=== PATIENT | female | born 1930 | race Caucasian/White ===

== ENCOUNTER 2017-01-02 08:00 | Outpatient (CLI) | payer MEDICARE, OTHER | END 2017-01-02 23:59 | DX: E03.9 Hypothyroidism, unspecified (principal) ==

== ENCOUNTER 2017-05-08 15:28 | Outpatient (CLI) | payer MEDICARE, OTHER | END 2017-05-08 15:29 | disposition home or self-care (01) | LOC: LAB.R 15:28 | PROVIDERS: ATTEND Family Medicine | DX: E03.9 Hypothyroidism, unspecified (principal) | CPT/HCPCS: 84443 ==

== ENCOUNTER 2017-11-02 10:43 | Outpatient (CLI) | payer MEDICARE, OTHER ==
[2017-11-02 11:12] LABS: BASOPHILS # (AUTO) 0.1 10^3/uL (0.0-0.1); BASOPHILS % (AUTO) 1.1 %; EOSINOPHILS % (AUTO) 0.1 %; HGB - HEMOGLOBIN 14.7 g/dL (12.0-16.0); LYMPHOCYTES # (AUTO) 2.1 10^3/uL (1.5-3.5); LYMPHOCYTES % (AUTO) 23.3 %; MEAN CORPUSCULAR HEMOGLOBIN 31.3 pg (27.0-31.0); MEAN CORPUSCULAR HGB CONC 34.8 g/dL (32.0-36.0); MEAN PLATELET VOLUME 7.2 fL (7.9-10.8); MONOCYTES % (AUTO) 10.8 %; NEUTROPHILS # (AUTO) 5.8 10^3/uL (1.5-6.6); NEUTROPHILS % (AUTO) 64.7 %; PLT - PLATELET COUNT 222 10^3/uL (130-450); RED BLOOD COUNT 4.71 10^6/uL (4.20-5.40); RED CELL DISTRIBUTION WIDTH 13.3 % (12.0-15.0); WHITE BLOOD COUNT 8.9 x10^3/uL (4.8-10.8)
--- NOTE | 2017-11-02 12:12 | XRAY Report ---
TWO VIEW CHEST: 11/02/2017 CLINICAL INDICATION: Fever, cough. COMPARISON: 04/30/2010. FINDINGS: Frontal and lateral views of the chest demonstrate a normal cardiac silhouette. The lungs are clear. No effusion or pneumothorax is present. IMPRESSION: NORMAL CHEST. NO EVIDENCE OF ACUTE CARDIOPULMONARY DISEASE. TD: 11/02/2017 12:11
== END 2017-11-02 10:44 | disposition home or self-care (01) ==
LOC: LAB 10:43
PROVIDERS: ATTEND Internal Medicine
DX: R50.9 Fever, unspecified (principal); R05 Cough
CPT/HCPCS: 36415; 71046; 84443; 85025

== ENCOUNTER 2017-11-06 09:16 | Inpatient (IN) | payer MEDICARE, OTHER ==
[2017-11-06] MEDS ORDERED: SODIUM CHLORIDE 0.9% 1,000 ML IV ONE ×2 (10:54→13:19)
--- NOTE | 2017-11-06 11:10 | ED Physician Documentation ---
History of Present Illness - Stated complaint Stated Complaint: GLF - Chief complaint Chief Complaint: General - Additonal information Additional information: hx from daughter as pt has alzheimers pt got up in middle of night and apparently fell and lay on her L side for much of the night has swelling to L sidde of head and bruise to L shoulder and hip recently dx with pna (had focal RLL ronchi on exam) and is on levaquin no NVD, wears depends daughter is a medical provider - req labs/CK level images IVF Review of Systems Constitutional: denies: Fever Cardiac: denies: Chest pain / pressure Respiratory: reports: Cough GI: denies: Abdominal Pain, Nausea, Vomiting Musculoskeletal: reports: Joint pain Endocrine: denies: Easy bruising / bleeding PD PAST MEDICAL HISTORY - Present Medications Home Medications: Ambulatory Orders Medication Instructions Recorded Confirmed Levofloxacin [Levaquin] 500 mg PO DAILY 11/06/17 11/06/17 Levothyroxine Sodium 75 mcg PO DAILY 11/06/17 11/06/17 Quetiapine Fumarate 12.5 mg PO QPM 11/06/17 11/06/17 - Allergies Allergies/Adverse Reactions: Allergies Allergy/AdvReac Type Severity Reaction Status Date / Time No Known Drug Allergies Allergy Verified 11/06/17 09:37 PD ED PE NORMAL - Vitals Vital signs reviewed: Yes - General General: No: Alert and oriented X 3 (dementia) - HEENT HEENT: PERRL, Other (slight swellign left side, no deformity of apparnet TTP) - Neck Neck: No bony TTP (but dementia limits exam) - Cardiac Cardiac: RRR - Respiratory Respiratory: No respiratory distress, Clear bilaterally - Abdomen Abdomen: Soft, Non tender - Derm Derm: Other (bruise to L shoulder and hip) - Extremities Extremities: Other (TTP LL shoulder and hip, + periph motror and perfusion, diff to assess sensation) Results - Vitals Vitals: Vital Signs - 24 hr 11/06/17 11/06/17 09:31 12:10 Temperature 36.7 C Heart Rate 111 H 70 Respiratory 20 19 Rate Blood Pressure 142/66 H 144/64 H O2 Saturation 96 98 Oxygen O2 Source Room air - Labs Labs: Laboratory Tests 11/06/17 11/06/17 11/06/17 12:09 12:25 12:25 WBC 10.7 RBC 4.57 Hgb 14.2 Hct 40.9 MCV 89.4 MCH 31.0 MCHC 34.7 RDW 12.7 Plt Count 286 MPV 7.1 L Neut # 7.3 H Lymph # 2.0 [place] # 1.3 H Eos # 0.0 Baso # 0.0 Absolute Nucleated RBC 0.00 Nucleated RBC % 0.0 Sodium 130 L Potassium 3.8 Chloride 99 L Carbon Dioxide 22 Anion Gap 9.0 BUN 13 Creatinine 0.6 Estimated GFR (MDRD) 95 Glucose 115 H Calcium 8.2 L Total Creatine Kinase 3349 H* Urine Color YELLOW Urine Clarity CLEAR Urine pH 6.5 Ur Specific Emerson 1.010 Urine Protein NEGATIVE Urine Glucose (UA) NEGATIVE Urine Ketones 15 H Urine Occult Blood TRACE-LYSE Urine Nitrite NEGATIVE Urine Bilirubin NEGATIVE Urine Urobilinogen 0.2 (NORMAL) Ur Leukocyte Esterase NEGATIVE Ur Microscopic Review NOT INDICATED Urine Culture Comments NOT INDICATED - Rads (name of study) CTH Radiology: See rad report (no acute fx bleed, age related atrophy, sinusitis frontal ethmoid, sphenoid macillary, hemorrhage cannot be excluded (but not c/w clinical exam)) [facility] Radiology: See rad report (no acute fx, degen changes) shoulder Radiology: See rad report (no fx) hip Radiology: See rad report (no fx, DJD, small calcification lateral to left greater troch possibly sequalae of brusitis) PD MEDICAL DECISION MAKING - ED course ED course: rhabdo - giving IVF called hospitalist for admit at 1315 Departure - Departure Disposition: ED Place in Observation Clinical Impression: Rhabdomyolysis Qualifiers: Rhabdomyolysis type: traumatic Encounter type: initial encounter Qualified Code (s): T79.6XXA - Traumatic ischemia of muscle, initial encounter Discharge Date/Time: 11/06/17 13:58
--- NOTE | 2017-11-06 12:03 | CT Report ---
EXAM: CT HEAD EXAM DATE: 11/06/2017 11:46 AM. CLINICAL HISTORY: Fall HI. COMPARISON: None. TECHNIQUE: Multiaxial CT images were obtained from the foramen magnum to the vertex. Reformats: Coron al. IV contrast: None. In accordance with CT protocol optimization, one or more of the following dose reduction techniques w ere utilized for this exam: automated exposure control, adjustment of mA and/or KV based on patient s ize, or use of iterative reconstructive technique. FINDINGS: Parenchyma: No intraparenchymal hemorrhage. No evidence of mass, midline shift, or CT findings of acu te infarction. Stephenson-white differentiation is distinct. Diffuse chronic microangiopathic white matter changes are evident and appear progressed. Extraaxial Spaces: Normal for age. No subdural or epidural collections identified. Ventricles: The ventricles and cortical sulci are enlarged, consistent with age-related tissue loss, with mild progression. Sinuses and orbits: Previously, the visualized paranasal sinuses were clear. Partial visualization of the maxillary sinuses now demonstrates opacification of much of the right maxillary sinus with an ai r-fluid level. There is also now near complete opacification of the ethmoid air cells bilaterally and moderate opacification in the frontal sinuses, left greater than right and substantial opacification within the sphenoid sinuses with evidence of air-fluid levels within the left frontal and bilateral sphenoid sinuses. This is compatible with acute sinusitis. In the setting of injury, hemorrhage is no t excluded. Temporal bones are clear. No definite abnormal density or air within the orbits Bones: No definite fractures demonstrated. No definite fractures demonstrated within the visualized p ortion of the facial bones. Other: None. IMPRESSION: 1. Generalized age-related cortical atrophic changes without evidence of acute intracranial abnormali ty, with mild progression compared with 2008. 2. Partial demonstration of the paranasal sinuses demonstrates substantial new paranasal sinus diseas e with moderate to severe opacification of frontal, ethmoid and sphenoid sinuses and the right maxill kartik sinus with evidence of air-fluid levels within the frontal, sphenoid sinuses and right ethmoid si nus. This is compatible with acute, possibly upon chronic, sinusitis. In the setting of injury, hemor rhage within the sinuses cannot be excluded. 3. No definite fractures demonstrated. [facility] Referring Provider Line: [phone] SITE ID: [id number]
--- NOTE | 2017-11-06 12:10 | CT Preliminary Report ---
Exam: CT CERVICAL SPINE W/O IMPRESSION: 1. No fracture or acute abnormality demonstrated. 2. Degenerative disk and facet disease, as above. 3. Grade 1 anterior listhesis at C4-C5, presumably due to degenerative facet disease. [facility] SITE ID: [id number]
--- NOTE | 2017-11-06 12:10 | CT Report ---
EXAM: CT CERVICAL SPINE WITHOUT CONTRAST DATE: 11/06/2017 11:46 AM. HISTORY: Fall HI. Fall, head injury, neck pain. COMPARISONS: None. TECHNIQUE: Thin-section axial images were acquired of the cervical spine without contrast. Post-proce ssing: Coronal and sagittal reformats. Other: None. In accordance with CT protocol optimization, one or more of the following dose reduction techniques w ere utilized for this exam: automated exposure control, adjustment of mA and/or KV based on patient s ize, or use of iterative reconstructive technique. FINDINGS: Alignment: No scoliosis or spondylolisthesis. Bones: 3 mm anterior listhesis at C4-C5, likely due to degenerative facet disease. Interspace Levels/Facets: Degenerative disk disease, greatest at C5-C6 where there is moderately severe disk space narrowing an d moderate vertebral body spurring. Facet degenerative disease is greatest on the right at C3-C4 and on the left at C4-C5. Mild to moderate bony neural foraminal narrowing on the left at C4-C5 due to un covertebral spurring. Only minimal to mild narrowing demonstrated at other levels. No high-grade bony canal stenosis. Musculature: Normal. No fatty atrophy. Other: No paravertebral soft tissue swelling demonstrated. Vascular calcifications, including bilater al carotid artery. The lung apices are clear. Substantial opacity within the visualized sphenoid sinu ses. Refer to the head CT report. IMPRESSION: 1. No fracture or acute abnormality demonstrated. 2. Degenerative disk and facet disease, as above. 3. Grade 1 anterior listhesis at C4-C5, presumably due to degenerative facet disease. [facility] Referring Provider Line: [phone] SITE ID: [id number]
[2017-11-06 12:20] LABS: BILIRUBIN,URINE NEGATIVE (NEGATIVE); CLARITY,URINE CLEAR (CLEAR); GLUCOSE, URINE (UA) NEGATIVE (NEGATIVE); KETONES,URINE (UA) 15 mg/dL (NEGATIVE); LEUKOCYTE ESTERASE, URINE NEGATIVE (NEGATIVE); NITRITE,URINE NEGATIVE (NEGATIVE); OCCULT BLOOD,URINE TRACE-LYSE (NEGATIVE); PH,URINE 6.5 PH (5.0-7.5); PROTEIN,URINE NEGATIVE (NEGATIVE); UROBILINOGEN,URINE 0.2 (NORMAL) E.U./dL (NORMAL)
[2017-11-06 12:31] LABS: BASOPHILS % (AUTO) 0.5 %; EOSINOPHILS % (AUTO) 0.1 %; HGB - HEMOGLOBIN 14.2 g/dL (12.0-16.0); LYMPHOCYTES % (AUTO) 18.4 %; MEAN CORPUSCULAR HGB CONC 34.7 g/dL (32.0-36.0); MEAN CORPUSCULAR VOLUME 89.4 fL (81.0-99.0); MEAN PLATELET VOLUME 7.1 fL (7.9-10.8); MONOCYTES # (AUTO) 1.3 10^3/uL (0.0-1.0); MONOCYTES % (AUTO) 12.4 %; NEUTROPHILS # (AUTO) 7.3 10^3/uL (1.5-6.6); NEUTROPHILS % (AUTO) 68.6 %; PLT - PLATELET COUNT 286 10^3/uL (130-450); RED BLOOD COUNT 4.57 10^6/uL (4.20-5.40); RED CELL DISTRIBUTION WIDTH 12.7 % (12.0-15.0); WHITE BLOOD COUNT 10.7 x10^3/uL (4.8-10.8)
--- NOTE | 2017-11-06 12:49 | XRAY Report ---
EXAM: LEFT SHOULDER RADIOGRAPHY EXAM DATE: 11/06/2017 11:44 AM. CLINICAL HISTORY: Fall, shoulder bruise. COMPARISON: Chest x-ray 11/02/2017. TECHNIQUE: 3 views. FINDINGS: Bones: No fracture or bone lesion. Joints: No convincing subluxation. Mild marginal spurring at the acromioclavicular joint. Glenohumera l joint is preserved. Soft tissues: No periarticular calcification. IMPRESSION: 1. No apparent fracture or bony malalignment. 2. Mild acromioclavicular DJD. [facility] Referring Provider Line: [phone] SITE ID: [id number]
--- NOTE | 2017-11-06 12:53 | XRAY Report ---
EXAM: LEFT HIP RADIOGRAPHY EXAM DATE: 11/06/2017 12:05 PM. CLINICAL HISTORY: Fall, hip bruise. COMPARISON: None. TECHNIQUE: 2 views including AP pelvis. FINDINGS: Bones: No convincing acute fracture. Joints: No subluxation. Mild age-related left hip DJD. Intact pubic symphysis and grossly symmetrical SI joints. Soft Tissues: A small calcific density is adjacent to the left greater trochanter. Other: Moderate right hip DJD. Degenerative changes lower lumbar spine. IMPRESSION: 1. No convincing acute fracture or bony malalignment. 2. Mild left hip DJD. 3. A small calcification adjacent to the left greater trochanter, possible sequela of trochanteric bu rsitis. [facility] Referring Provider Line: [phone] SITE ID: [id number]
[2017-11-06 13:03] LABS: CALCIUM 8.2 mg/dL (8.5-10.3); CREATININE 0.6 mg/dL (0.4-1.0)
[2017-11-06] MEDS ORDERED: SODIUM BICARBONATE 100 MEQ in DEXTROSE 5% 1,000 ML IV STA (13:09)
[2017-11-06] MEDS ORDERED: oxyCODONE 5 MG TABLET PO PRN (13:28)
[2017-11-06] MEDS ORDERED: ONDANSETRON 4 MG/2 ML VIAL IVP PRN (13:28)
[2017-11-06] MEDS ORDERED: SODIUM CHLORIDE FLUSH 0.9% 10 ML SYRINGE IVP PRN (13:28)
[2017-11-06] MEDS ORDERED: ONDANSETRON ODT 4 MG TABLET TL PRN (13:28)
[2017-11-06] MEDS: ACETAMINOPHEN 325 MG TABLET PO SCH ×2 (14:38→20:14)
[2017-11-06] MEDS: PANTOPRAZOLE 40 MG TABLET PO SCH (14:38)
[2017-11-06] MEDS: SODIUM CHLORIDE 0.9% 1,000 ML IV SCH (14:53)
[2017-11-06] MEDS ORDERED: methylPREDNISolone 4 MG TABLET PO ONE (16:00)
[2017-11-06] MEDS: SODIUM CHLORIDE FLUSH 0.9% 10 ML SYRINGE IVP SCH (17:29)
--- NOTE | 2017-11-06 19:18 | HISTORY & PHYSICAL EXAMINATION ---
DATE OF SERVICE: 11/06/2017 Physician: Allie Reed MD PRIMARY CARE PROVIDER: Talib Shook. ADMITTING PROVIDER: Allie Reed MD. CHIEF COMPLAINT: Found down in her apartment at her assisted living facility. She is a densely demented 87-year-old female who can be quite a handful from a personality perspective. She was living in the [facility] of an assisted living facility for a few years now. In September 2015, she had to be moved into the "big house" when her got hospitalized for a hip fracture and then she returned to the [facility]. When he in September 2016, she has been living permanently in her own apartment. She actually does quite well by herself. Aricept was stopped a couple of years ago, because it seemed to be contributing to falls and dizziness. Seroquel was being used for insomnia, but recently that was also felt to be causing some of her dizziness. Her Seroquel was decreased to 12.5 from 25. She was not supposed to get it last night, but she did get more Seroquel. In addition, she developed fever, cough, nasal congestion. Fever to 101.5. This was all on 10/31/2017. On that day, she had also been found down on the floor. On 2017 her daughter got a CBC and a chest x-ray. CBC was normal. Chest x-ray did not show any infiltrates. She was then seen by her primary care provider on 11/03/2017. She was again described as febrile, coughing, congested. She had purulent nasal discharge as well as blood in her phlegm. She was treated as a pneumonia because her right lung sounded congested and she was given Levaquin. Today, she was found down in her apartment. It is unclear how long she had been down. It may have been overnight. She was afebrile at 36.7. Heart rate was minimally elevated at 111. Blood pressure 142/66, respirations 20, and she was 96% on room air. She is an elderly female who is nasal, congested, alert. She had some swelling on the left side of her face, no respiratory distress and clear lungs. Her labs showed her to be hyponatremic with a normal BUN and creatinine and a CK of 3349. White cell count was normal, hemoglobin was normal and urinalysis was normal other than mild ketonuria. She is now placed in observation for mild dehydration on physical exam and mild rhabdomyolysis. PAST MEDICAL HISTORY 1. Dementia, starting in her mid 70s. This has been accompanied by insomnia, personality changes, and at times she can be a handful. She has lost some weight with anorexia and weight in 2011 was 127 and today it will need to be taken. In the past, she has been on Aricept. Her used to take very good care of her. Unfortunately, he , and she now needs 24/ assisted living care, but she has remained remarkably independent in spite of that. 2. Depression accompanying some of her dementia. 3. Gastroesophageal reflux disease and peptic ulcer disease history. 4. Zoster at age 81. 5. History of kidney stones. 6. Hyperlipidemia. Unfortunately, she cannot tolerate statins. 7. Hypothyroidism. She had Graves disease with a thyroidectomy in 1959. With her dementia she has been intermittently noncompliant with her medications. She will stoutly insist she is taking her medications, but the pill bottle will be full. This changed quite a bit when she was put in the assisted living facility. At one point, her TSH was 37 in 2011 with her noncompliance. 8. Aortic valve insufficiency. 9. Peripheral neuropathy, mild. 10. Arthritis with knee arthroscopy in 1991. 11. Fall with rib fractures in the remote past. 12. History of lateral epicondylitis. 13. 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 14. History of tubular adenomas. 15. Osteoporosis. 16. History of kidney stones. 17. G5, P5. 18. Ductal carcinoma in situ, status post right modified radical mastectomy in 1983. ALLERGIES: NO KNOWN DRUG ALLERGIES. MEDICATIONS 1. Levaquin 500 daily. 2. Levothyroxine 75 mcg a day. 3. Seroquel was cut back to 12.5 mg earlier this week. She did receive 1 dose last night. SOCIAL HISTORY: She was born in [facility]. 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 She shortly thereafter met her to be who was in the . In 7 years, she had 5 children. She drinks maybe 2 drinks a week, at most. Never had a problem with alcohol abuse. Never a tobacco smoker. Her has been since September 2016, and she lives in her own apartment in the assisted living facility. One of her daughters lives nearby and sees her on a regular basis and takes her to her doctor's appointments. FAMILY HISTORY: Dad of a stroke at age 40. Mom at age 94 of old age. She used to have 5 brothers and 5 sisters. Only one brother is alive and only 3 sisters are alive. Her siblings have of various illnesses. Her brothers of complications of smoking, COPD, alcoholism, and one brother had colon cancer. Of her 3 sisters there has been atrial fibrillation and just natural causes with aging. Five children are healthy. One has Graves disease and one has had breast cancer. REVIEW OF SYSTEMS: Obtained from her daughter. She has had no unexpected weight changes or fevers or sweats until this last week. HEAD AND NECK: No problems with glaucoma or cataracts that she knows of. She got all of her teeth pulled 4 weeks ago. Because of her dementia, the patient does not take care of her mouth and started snapping off her teeth at the roots. So, all of her teeth were pulled and they are trying to figure out what to do with her dentures, but they make her gag. It has not been a success. I suspect there has been even more weight loss because of that. She is mildly deaf. PULMONARY: She does not have chronic bronchitis or emphysema symptoms. All of her cough and congestion are new as of this week. CARDIAC: No history of heart attack, strokes, murmur. No history of atrial fibrillation. Valvular heart disease as above. No recent orthopnea or edema. GASTROINTESTINAL: Negative. GENITOURINARY: Negative other than occasional urinary incontinence. JOINTS: Positive arthritis. Her knuckles are deformed because of it. Occasional back and neck pain because of it, but no chronic pain that needs to be controlled. DERMATOLOGIC: Some mild flaking of her skin with eczema or seborrhea. Nothing new. 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 However, there has been no lashing out, no hitting of people. She just needs patience and someone to control her to do things. No history of syncope or seizures. PHYSICAL EXAMINATION VITAL SIGNS: Temperature is 36.8, pulse 73, blood pressure 145/76, respirations 18, and she is 99% on room air. GENERAL: She is lying comfortably in her bed where she has been transferred from ED. She is awake, alert, and is cooperative and conversant. HEAD AND NECK: Unremarkable. There are no contusions. Pupils are reactive. Left side of the face is slightly bruised and swollen. Lips are dry, but tongue is pink and moist. Pupils are reactive. Voice is a little hoarse. Neck is supple. There is no pain or stiffness. No goiter or bruits and I can barely see her old thyroidectomy scar. LUNGS: Have rhonchi. No wheezing, no crackles. No tubular breath sounds. No egophony. No increased respiratory effort with speaking to me. PMI is normally placed with a regular rate and rhythm. She does have a soft systolic murmur at the left lower sternal border, but it is nonradiating. ABDOMEN: Soft, nontender. No organomegaly. No masses. The left side of her hip seems to have a very small redness for where she may have laid on it. EXTREMITIES: Warm, deformities of osteoarthritis along her knuckles of her fingers, toes. Some bruising on the left wrist, dorsum of the hand. Bruising along the left knee, but nothing severe and there is no hemarthrosis of any of her joints. NEUROLOGIC: She is alert and oriented to person, and she correctly identifies that she is in the hospital after I give her some time, but not time. She has no focal deficits. She is able to sit up on the side of the bed with a little bit of a grimace pain and stand up and sway on her feet. No focal deficits at all. IMAGING: Cervical spine CT, head CT, hip x-ray and shoulder x-ray were all done in the emergency room. Other than arthritis in her neck, and grade 1 anterolisthesis of C4 on 5, CT of the neck was okay. Head CT had generalized age-related cortical changes. Paranasal sinuses demonstrated substantial new paranasal sinus disease with moderate to severe opacification of the frontal, ethmoid and sphenoid sinuses and the right maxillary sinus with evidence of air fluid levels within the frontal, sphenoid sinuses and right ethmoid sinuses. Compatible with acute sinusitis. Left hip has no fracture, mild hip degenerative joint disease. Left shoulder had no fracture or bony alignment with mild acromioclavicular DJD. ASSESSMENT/PLAN 1. Mild rhabdomyolysis in this patient who has not bumped up her BUN and creatinine, but she has laid on the floor overnight, lips are little bit dry, so I also suspect mild dehydration. She will be placed in observation. ATTESTATION: The patient will be admitted for less than 96 hours and at 96 hours she will be evaluated for discharge or transfer. IV fluids will be used to hydrate her for a total of 2-3 liters of normal saline. 2. Severe sinusitis on CT. Continue Levaquin p.o. Add a burst steroid tapering pack to see if that will help as well. 3. Dementia, Alzheimer's type, with behavioral changes. At this time the patient is cooperative. We will not use Seroquel. Will try Risperdal 0.25 mg at night will help her. Daughter is in agreement with that. 4. DO NOT RESUSCITATE/DO NOT INTUBATE status per daughter and power of product trainer. 5. Deep venous thrombosis prophylaxis will be ALEXYS ram. TD: 11/06/2017 19:17 [facility]
[2017-11-06] MEDS ORDERED: QUEtiapine 25 MG TABLET PO SCH (21:00)
[2017-11-06] MEDS: risperiDONE 0.25 MG TABLET PO SCH (21:00)
[2017-11-07] MEDS: SODIUM CHLORIDE 0.9% 1,000 ML IV SCH (00:58)
[2017-11-07] MEDS: ACETAMINOPHEN 325 MG TABLET PO SCH ×4 (00:58→19:06)
[2017-11-07] MEDS: SODIUM CHLORIDE FLUSH 0.9% 10 ML SYRINGE IVP SCH ×4 (01:08→23:49)
[2017-11-07] MEDS: LEVOTHYROXINE 75 MCG TABLET PO SCH (06:00)
[2017-11-07] MEDS: PANTOPRAZOLE 40 MG TABLET PO SCH (06:00)
[2017-11-07 06:06] LABS: BASOPHILS # (AUTO) 0.1 10^3/uL (0.0-0.1); BASOPHILS % (AUTO) 0.8 %; HGB - HEMOGLOBIN 13.4 g/dL (12.0-16.0); LYMPHOCYTES # (AUTO) 1.4 10^3/uL (1.5-3.5); LYMPHOCYTES % (AUTO) 20.1 %; MEAN CORPUSCULAR HEMOGLOBIN 30.4 pg (27.0-31.0); MEAN CORPUSCULAR HGB CONC 34.1 g/dL (32.0-36.0); MEAN CORPUSCULAR VOLUME 89.2 fL (81.0-99.0); MEAN PLATELET VOLUME 7.3 fL (7.9-10.8); MONOCYTES # (AUTO) 0.5 10^3/uL (0.0-1.0); MONOCYTES % (AUTO) 7.5 %; NEUTROPHILS # (AUTO) 4.9 10^3/uL (1.5-6.6); NEUTROPHILS % (AUTO) 71.6 %; PLT - PLATELET COUNT 310 10^3/uL (130-450); RED BLOOD COUNT 4.41 10^6/uL (4.20-5.40); RED CELL DISTRIBUTION WIDTH 12.9 % (12.0-15.0); WHITE BLOOD COUNT 6.9 x10^3/uL (4.8-10.8)
[2017-11-07 06:17] LABS: ALBUMIN 2.6 g/dL (3.2-5.5); ALBUMIN/GLOBULIN RATIO 0.8 (1.0-2.2); BILIRUBIN,TOTAL 0.3 mg/dL (0.2-1.0); CALCIUM 7.9 mg/dL (8.5-10.3); CREATININE 0.6 mg/dL (0.4-1.0)
[2017-11-07] MEDS: POLYETHYLENE GLYCOL 3350 17 GM PACKET PO SCH (09:17)
[2017-11-07] MEDS: levoFLOXacin 250 MG TABLET PO SCH (09:39)
[2017-11-07] MEDS: NS W/20 MEQ KCL 1,000 ML IV SCH ×2 (11:50→19:10)
[2017-11-07] MEDS ORDERED: methylPREDNISolone 4 MG TABLET PO ONE ×2 (16:00→17:00)
--- NOTE | 2017-11-07 17:30 | PROVIDER PROGRESS NOTE ---
Subjective - Prog Note Date Prog Note Date: 11/07/17 Prog Note Time: 14:40 - Subjective Pt reports feeling: Improved Subjective: Patient is significantly demented and has little memory of things that happened literally 5 minutes ago let alone yesterday. She appears to be comfortable. She is not significantly short of breath. She is eating and moving her bowels. She slept well last night according to the staff. She has not had any fevers or chills. Current Medications - Current Medications Current Medications: Acetaminophen, Levaquin, levothyroxine, methyl prednisolone, ondansetron, oxycodone, pantoprazole, polyethylene glycol, Risperdal,Sodium chloride Objective - Vital Signs/Intake & Output Reviewed Vital Signs: Yes Vital Signs: Vital Signs x48h Temp Pulse Pulse Pulse Resp BP BP 11/07/17 15:24 36.4 C L 73 18 147/75 H 11/07/17 14:10 73 71 124/69 BP Pulse Ox 11/07/17 15:24 100 11/07/17 14:10 148/62 H - Objective General Appearance: positive: No acute distress, Alert, Anxious Eyes Bilateral: positive: Normal inspection, PERRL, EOMI, No lid inflammation, Conjunctivae nml, No scleral icterus ENT: positive: ENT inspection nml, Pharynx nml, No signs of dehydration Neck: positive: Nml inspection, Thyroid nml, No JVD, Trachea midline. negative : Thyromegaly Respiratory: positive: Chest non-tender, No respiratory distress, Breath sounds nml. negative: Wheezes, Rales, Rhonchi Cardiovascular: positive: Regular rate & rhythm, No murmur, No gallop Abdomen: positive: Non-tender, No organomegaly, Nml bowel sounds, No distention. negative: Guarding, Rebound Back: positive: Nml inspection, CVA tenderness (L). negative: CVA tenderness (R ) Skin: positive: Color nml, No rash, Warm, Dry. negative: Cyanosis Extremities: positive: Non-tender, Full ROM, Nml appearance, No pedal edema Neurologic/Psychiatric: positive: Oriented x3, CN's nml (2-12), Motor nml, Sensation nml, Mood/affect nml - Lab Results Fish Bones: 11/07/17 05:57 11/07/17 05:57 - Diagnostic Imaging Diagnostic Imaging Results: positive: Final report reviewed Diagnostic Imaging Comments: EXAM: CT HEAD EXAM DATE: 11/06/2017 11:46 AM. CLINICAL HISTORY: [place]. COMPARISON: None. TECHNIQUE: Multiaxial CT images were obtained from the foramen magnum to the vertex. Reformats: Coronal. IV contrast: None. In accordance with CT protocol optimization, one or more of the following dose reduction techniques were utilized for this exam: automated exposure control, adjustment of mA and/or KV based on patient size, or use of iterative reconstructive technique. FINDINGS: Parenchyma: No intraparenchymal hemorrhage. No evidence of mass, midline shift, or CT findings of acute infarction. Stephenson-white differentiation is distinct. Diffuse chronic microangiopathic white matter changes are evident and appear progressed. Extraaxial Spaces: Normal for age. No subdural or epidural collections identified. Ventricles: The ventricles and cortical sulci are enlarged, consistent with age- related tissue loss , with mild progression. Sinuses and orbits: Previously, the visualized paranasal sinuses were clear. Partial visualization of the maxillary sinuses now demonstrates opacification of much of the right maxillary sinus with an air-fluid level. There is also now near complete opacification of the ethmoid air cells bilaterally and moderate opacification in the frontal sinuses, left greater than right and substantial opacification within the sphenoid sinuses with evidence of air- fluid levels within the left frontal and bilateral sphenoid sinuses. This is compatible with acute sinusitis. In the setting of injury, hemorrhage is not excluded. Temporal bones are clear. No definite abnormal density or air within the orbits Bones: No definite fractures demonstrated. No definite fractures demonstrated within the visualized portion of the facial bones. Other: None. IMPRESSION: 1. Generalized age-related cortical atrophic changes without evidence of acute intracranial abnormality, with mild progression compared with 2009. 2. Partial demonstration of the paranasal sinuses demonstrates substantial new paranasal sinus disease with moderate to severe opacification of frontal, ethmoid and sphenoid sinuses and the right maxillary sinus with evidence of air-fluid levels within the frontal, sphenoid sinuses and right ethmoid sinus. This is compatible with acute, possibly upon chronic, sinusitis. In the setting of injury, hemorrhage within the sinuses cannot be excluded. 3. No definite fractures demonstrated. EXAM: CT CERVICAL SPINE WITHOUT CONTRAST DATE: 11/06/2017 11:46 AM. HISTORY: [place]. Fall, head injury, neck pain. COMPARISONS: None. TECHNIQUE: Thin-section axial images were acquired of the cervical spine without contrast. Post- processing: Coronal and sagittal reformats. Other: None. In accordance with CT protocol optimization, one or more of the following dose reduction techniques were utilized for this exam: automated exposure control, adjustment of mA and/or KV based on patient size, or use of iterative reconstructive technique. FINDINGS: Alignment: No scoliosis or spondylolisthesis. Bones: 3 mm anterior listhesis at C4-C5, likely due to degenerative facet disease. Interspace Levels/Facets: Degenerative disk disease, greatest at C5-C6 where there is moderately severe disk space narrowing and moderate vertebral body spurring. Facet degenerative disease is greatest on the right at C3-C4 and on the left at C4-C5. Mild to moderate bony neural foraminal narrowing on the left at C4-C5 due to uncovertebral spurring. Only minimal to mild narrowing demonstrated at other levels. No high- grade bony canal stenosis. Musculature: Normal. No fatty atrophy. Other: No paravertebral soft tissue swelling demonstrated. Vascular calcifications, including bilateral carotid artery. The lung apices are clear. Substantial opacity within the visualized sphenoid sinuses. Refer to the head CT report. IMPRESSION: 1. No fracture or acute abnormality demonstrated. 2. Degenerative disk and facet disease, as above. 3. Grade 1 anterior listhesis at C4-C5, presumably due to degenerative facet disease. EXAM: LEFT SHOULDER RADIOGRAPHY EXAM DATE: 11/06/2017 11:44 AM. CLINICAL HISTORY: Fall, shoulder bruise. COMPARISON: Chest x-ray 11/02/2017. TECHNIQUE: 3 views. FINDINGS: Bones: No fracture or bone lesion. Joints: No convincing subluxation. Mild marginal spurring at the acromioclavicular joint. Glenohumeral joint is preserved. Soft tissues: No periarticular calcification. IMPRESSION: 1. No apparent fracture or bony malalignment. 2. Mild acromioclavicular DJD. EXAM: LEFT HIP RADIOGRAPHY EXAM DATE: 11/06/2017 12:05 PM. CLINICAL HISTORY: Fall, hip bruise. COMPARISON: None. TECHNIQUE: 2 views including AP pelvis. FINDINGS: Bones: No convincing acute fracture. Joints: No subluxation. Mild age-related left hip DJD. Intact pubic symphysis and grossly symmetrical SI joints. Soft Tissues: A small calcific density is adjacent to the left greater trochanter. Other: Moderate right hip DJD. Degenerative changes lower lumbar spine. IMPRESSION: 1. No convincing acute fracture or bony malalignment. 2. Mild left hip DJD. 3. A small calcification adjacent to the left greater trochanter, possible sequela of trochanteric bursitis. Assessment/Plan - Problem List (1) Rhabdomyolysis Impression: The pt's CK was 3349 on admission, 1611 24 hours later. Continue IVFs, will recheck tomorrow. If CK is 800 or less, will d/c pt back to her residence. Pt has significant dementia and will do better once she is back in a familiar environment. Pt's creatinine remains 0.6. Qualifiers: Rhabdomyolysis type: traumatic Encounter type: initial encounter Qualified Code(s): T79.6XXA - Traumatic ischemia of muscle, initial encounter (2) Dementia Impression: Significantly advanced, patient cannot take care of her ADLs. Strongly recommend memory care placement on discharge.
[2017-11-07] MEDS: risperiDONE 0.25 MG TABLET PO SCH (19:05)
[2017-11-08] MEDS: ACETAMINOPHEN 325 MG TABLET PO SCH ×5 (02:12→20:25)
[2017-11-08] MEDS: NS W/20 MEQ KCL 1,000 ML IV SCH ×3 (03:04→20:25)
[2017-11-08] MEDS: LEVOTHYROXINE 75 MCG TABLET PO SCH (05:37)
[2017-11-08] MEDS: PANTOPRAZOLE 40 MG TABLET PO SCH (05:37)
[2017-11-08] MEDS: SODIUM CHLORIDE FLUSH 0.9% 10 ML SYRINGE IVP SCH ×2 (08:06→16:48)
[2017-11-08] MEDS: levoFLOXacin 250 MG TABLET PO SCH (08:06)
[2017-11-08] MEDS: POLYETHYLENE GLYCOL 3350 17 GM PACKET PO SCH (08:06)
[2017-11-08] MEDS: SODIUM CHLORIDE 0.9% 1,000 ML IV SCH (11:23)
--- NOTE | 2017-11-08 16:29 | PROVIDER PROGRESS NOTE ---
Subjective - Prog Note Date Prog Note Date: 11/08/17 Prog Note Time: 13:00 - Subjective Pt reports feeling: No change (The patient is significantly demented and has little memory of things that happened literally 5 minutes ago let alone yesterday. She appears to be comfortable. She is not significantly short of breath. She is eating and moving her bowels. She slept well last night according to the staff. She has not had any fevers or chills. She has been ambulating several times a day with the nursing staff.) Current Medications - Current Medications Current Medications: Acetaminophen, Levaquin, levothyroxine, methyl prednisolone, ondansetron, oxycodone, pantoprazole, polyethylene glycol, Risperdal,Sodium chloride Objective - Vital Signs/Intake & Output Reviewed Vital Signs: Yes Vital Signs: Vital Signs x48h Temp Pulse Resp BP Pulse Ox 11/08/17 15:33 36.7 C 72 20 148/75 H 100 Intake & Output: Intake & Output 11/05/17 11/06/17 11/07/17 11/08/17 23:59 23:59 23:59 23:59 Intake Total 1914.441 5468.5 Output Total 2050 3875 Balance -383.333 812.5 - Objective General Appearance: positive: No acute distress, Alert, Anxious Eyes Bilateral: positive: Normal inspection, PERRL, EOMI, No lid inflammation, Conjunctivae nml, No scleral icterus ENT: positive: ENT inspection nml, Pharynx nml, No signs of dehydration Neck: positive: Nml inspection, Thyroid nml, No JVD, Trachea midline. negative : Thyromegaly Respiratory: positive: Chest non-tender, No respiratory distress, Breath sounds nml. negative: Wheezes, Rales, Rhonchi Cardiovascular: positive: Regular rate & rhythm, No murmur, No gallop Abdomen: positive: Non-tender, No organomegaly, Nml bowel sounds, No distention. negative: Guarding, Rebound Back: positive: Nml inspection. negative: CVA tenderness (R), CVA tenderness (L ) Skin: positive: Color nml, No rash, Warm, Dry. negative: Cyanosis Extremities: positive: Non-tender, Full ROM, Nml appearance, No pedal edema Neurologic/Psychiatric: positive: CN's nml (2-12), Motor nml, Sensation nml, Disoriented to place, Disoriented to time - Lab Results Fish Bones: 11/07/17 05:57 11/07/17 05:57 Other Labs: Lab Results x24hrs 11/08/17 11/08/17 Range/Units 14:20 08:45 Total Creatine Kinase 2208 H* 2118 H* (22-269) IU/L - Diagnostic Imaging Diagnostic Imaging Results: positive: Final report reviewed Diagnostic Imaging Comments: EXAM: CT HEAD EXAM DATE: 11/06/2017 11:46 AM. CLINICAL HISTORY: [place]. COMPARISON: None. TECHNIQUE: Multiaxial CT images were obtained from the foramen magnum to the vertex. Reformats: Coronal. IV contrast: None. In accordance with CT protocol optimization, one or more of the following dose reduction techniques were utilized for this exam: automated exposure control, adjustment of mA and/or KV based on patient size, or use of iterative reconstructive technique. FINDINGS: Parenchyma: No intraparenchymal hemorrhage. No evidence of mass, midline shift, or CT findings of acute infarction. Stephenson-white differentiation is distinct. Diffuse chronic microangiopathic white matter changes are evident and appear progressed. Extraaxial Spaces: Normal for age. No subdural or epidural collections identified. Ventricles: The ventricles and cortical sulci are enlarged, consistent with age- related tissue loss , with mild progression. Sinuses and orbits: Previously, the visualized paranasal sinuses were clear. Partial visualization of the maxillary sinuses now demonstrates opacification of much of the right maxillary sinus with an air-fluid level. There is also now near complete opacification of the ethmoid air cells bilaterally and moderate opacification in the frontal sinuses, left greater than right and substantial opacification within the sphenoid sinuses with evidence of air- fluid levels within the left frontal and bilateral sphenoid sinuses. This is compatible with acute sinusitis. In the setting of injury, hemorrhage is not excluded. Temporal bones are clear. No definite abnormal density or air within the orbits Bones: No definite fractures demonstrated. No definite fractures demonstrated within the visualized portion of the facial bones. Other: None. IMPRESSION: 1. Generalized age-related cortical atrophic changes without evidence of acute intracranial abnormality, with mild progression compared with 2008. 2. Partial demonstration of the paranasal sinuses demonstrates substantial new paranasal sinus disease with moderate to severe opacification of frontal, ethmoid and sphenoid sinuses and the right maxillary sinus with evidence of air-fluid levels within the frontal, sphenoid sinuses and right ethmoid sinus. This is compatible with acute, possibly upon chronic, sinusitis. In the setting of injury, hemorrhage within the sinuses cannot be excluded. 3. No definite fractures demonstrated. EXAM: CT CERVICAL SPINE WITHOUT CONTRAST DATE: 11/06/2017 11:46 AM. HISTORY: [place]. Fall, head injury, neck pain. COMPARISONS: None. TECHNIQUE: Thin-section axial images were acquired of the cervical spine without contrast. Post- processing: Coronal and sagittal reformats. Other: None. In accordance with CT protocol optimization, one or more of the following dose reduction techniques were utilized for this exam: automated exposure control, adjustment of mA and/or KV based on patient size, or use of iterative reconstructive technique. FINDINGS: Alignment: No scoliosis or spondylolisthesis. Bones: 3 mm anterior listhesis at C4-C5, likely due to degenerative facet disease. Interspace Levels/Facets: Degenerative disk disease, greatest at C5-C6 where there is moderately severe disk space narrowing and moderate vertebral body spurring. Facet degenerative disease is greatest on the right at C3-C4 and on the left at C4-C5. Mild to moderate bony neural foraminal narrowing on the left at C4-C5 due to uncovertebral spurring. Only minimal to mild narrowing demonstrated at other levels. No high- grade bony canal stenosis. Musculature: Normal. No fatty atrophy. Other: No paravertebral soft tissue swelling demonstrated. Vascular calcifications, including bilateral carotid artery. The lung apices are clear. Substantial opacity within the visualized sphenoid sinuses. Refer to the head CT report. IMPRESSION: 1. No fracture or acute abnormality demonstrated. 2. Degenerative disk and facet disease, as above. 3. Grade 1 anterior listhesis at C4-C5, presumably due to degenerative facet disease. EXAM: LEFT SHOULDER RADIOGRAPHY EXAM DATE: 11/06/2017 11:44 AM. CLINICAL HISTORY: Fall, shoulder bruise. COMPARISON: Chest x-ray 11/02/2017. TECHNIQUE: 3 views. FINDINGS: Bones: No fracture or bone lesion. Joints: No convincing subluxation. Mild marginal spurring at the acromioclavicular joint. Glenohumeral joint is preserved. Soft tissues: No periarticular calcification. IMPRESSION: 1. No apparent fracture or bony malalignment. 2. Mild acromioclavicular DJD. EXAM: LEFT HIP RADIOGRAPHY EXAM DATE: 11/06/2017 12:05 PM. CLINICAL HISTORY: Fall, hip bruise. COMPARISON: None. TECHNIQUE: 2 views including AP pelvis. FINDINGS: Bones: No convincing acute fracture. Joints: No subluxation. Mild age-related left hip DJD. Intact pubic symphysis and grossly symmetrical SI joints. Soft Tissues: A small calcific density is adjacent to the left greater trochanter. Other: Moderate right hip DJD. Degenerative changes lower lumbar spine. IMPRESSION: 1. No convincing acute fracture or bony malalignment. 2. Mild left hip DJD. 3. A small calcification adjacent to the left greater trochanter, possible sequela of trochanteric bursitis. Assessment/Plan - Problem List (1) Rhabdomyolysis Impression: The patient's CPK initially came down from 3349 to 1611 after 24 hours, however today went back up to 2118. At the patient's daughter's request we repeated the CPK level and it actually has climbed again a little bit more to 2208. The patient is not on any statins, macrolides, or HIV medications so I doubt this is drug related; I suspect that this is just the patient taking a longer time than usual to clear the CK levels, and this is not unexpected an 87-year-old. We will continue to administer IV fluids and monitor. The patient's creatinine remains stable at 0.6 and her BUN has come down from 13-11. Continue present care. Qualifiers: Rhabdomyolysis type: traumatic Encounter type: initial encounter Qualified Code(s): T79.6XXA - Traumatic ischemia of muscle, initial encounter (2) Dementia Impression: Significantly advanced, patient cannot take care of her ADLs. Strongly recommend memory care placement on discharge.
[2017-11-08] MEDS: methylPREDNISolone 4 MG TABLET PO SCH (16:50)
[2017-11-08] MEDS: risperiDONE 0.25 MG TABLET PO SCH (20:25)
[2017-11-09] MEDS: SODIUM CHLORIDE FLUSH 0.9% 10 ML SYRINGE IVP SCH ×2 (01:27→08:51)
[2017-11-09] MEDS: ACETAMINOPHEN 325 MG TABLET PO SCH ×2 (01:27→08:50)
[2017-11-09] MEDS: NS W/20 MEQ KCL 1,000 ML IV SCH ×2 (04:00→12:23)
[2017-11-09 05:52] LABS: HGB - HEMOGLOBIN 14.3 g/dL (12.0-16.0); MEAN CORPUSCULAR HEMOGLOBIN 30.4 pg (27.0-31.0); MEAN CORPUSCULAR HGB CONC 33.1 g/dL (32.0-36.0); MEAN CORPUSCULAR VOLUME 91.9 fL (81.0-99.0); MEAN PLATELET VOLUME 7.1 fL (7.9-10.8); RED BLOOD COUNT 4.69 10^6/uL (4.20-5.40); RED CELL DISTRIBUTION WIDTH 13.4 % (12.0-15.0); WHITE BLOOD COUNT 6.6 x10^3/uL (4.8-10.8)
[2017-11-09 05:59] LABS: CREATININE 0.6 mg/dL (0.4-1.0)
[2017-11-09] MEDS: PANTOPRAZOLE 40 MG TABLET PO SCH (06:46)
[2017-11-09] MEDS: LEVOTHYROXINE 75 MCG TABLET PO SCH (06:46)
[2017-11-09] MEDS: levoFLOXacin 250 MG TABLET PO SCH (08:50)
[2017-11-09] MEDS: methylPREDNISolone 4 MG TABLET PO SCH (08:50)
[2017-11-09] MEDS: POLYETHYLENE GLYCOL 3350 17 GM PACKET PO SCH (08:51)
--- NOTE | 2017-11-09 11:01 | DISCHARGE SUMMARY ---
Discharge Summary Admit Date: 11/06/17 Discharge Date: 11/09/17 Discharging Provider: Thao Armendariz Primary Care Provider: Talib Rivera Code Status: Do Not Attempt Resuscitation Condition at Discharge: Stable Discharge Disposition: SNF DC/Xfer Discharge Facility Name: [facility] - DIAGNOSES Admission Diagnoses: 1. Rhabdomyolysis 2. Severe sinusitis on CT 3. Alzheimer's dementia Discharge Diagnoses with Status of Each Condition: 1. Rhabdomyolysis -Resolving nicely. The patient's initial CPK was over 3200 and is now down to around 2000. Patient's creatinine has remained stable at 0.6 throughout this process and I believe the patient is at a point where it would be more beneficial for her to be at her home in familiar environment then to be here in the hospital due to her significant dementia. 2. Severe sinusitis on CT- The patient was treated with antibiotics while here in the hospital but will need to continue these at home. 3. Alzheimer's dementia- Significant, fast scale score 6E. Patient needs to be in a memory care unit and can no longer reside in an independent cottage. - HPI History of Present Illness: From Dr. Perla's history and physical: The patient is a densely demented 87- year-old female who has been living in the cottages of an assisted-living facility for a few years. The patient had been on Aricept but this was stopped a few years ago because of possibly contributing to falls and dizziness. She recently developed fever cough nasal congestion and was found the next day on the floor for an unknown amount of time and was subsequently discovered to be in rhabdomyolysis. She was admitted to the hospital for IV fluids and symptom management and to monitor her renal function. - HOSPITAL COURSE Hospital Course: The patient was admitted to medical floor and given IV fluids. She was resumed on her home medications. Subsequent testing found her creatinine kinase to come down to 1600 but it subsequently went back up to the 2100 range the following day. Today, inpatient day four, her creatinine kinase is around 1000. Her creatinine has remained at 0.6 throughout this process. - ALLERGIES Allergies/Adverse Reactions: Allergies Allergy/AdvReac Type Severity Reaction Status Date / Time No Known Drug Allergies Allergy Verified 11/06/17 09:37 - MEDICATIONS Home Medications: Ambulatory Orders Medication Instructions Recorded Confirmed Levofloxacin [Levaquin] 500 mg PO DAILY 11/06/17 11/06/17 Levothyroxine Sodium 75 mcg PO DAILY 11/06/17 11/06/17 Quetiapine Fumarate 12.5 mg PO QPM 11/06/17 11/06/17 - PHYSICAL EXAM AT DISCHARGE General Appearance: positive: No acute distress, Alert, Anxious Eyes Bilateral: positive: Normal inspection, PERRL, EOMI, No lid inflammation, Conjunctivae nml, No scleral icterus ENT: positive: ENT inspection nml, Pharynx nml, No signs of dehydration Neck: positive: Nml inspection, Thyroid nml, No JVD, Trachea midline. negative : Thyromegaly Respiratory: positive: Chest non-tender, No respiratory distress, Breath sounds nml. negative: Wheezes, Rales, Rhonchi Cardiovascular: positive: Regular rate & rhythm, No murmur, No gallop Peripheral Pulses: positive: 1+ Abdomen: positive: Non-tender, No organomegaly, Nml bowel sounds, No distention. negative: Guarding, Rebound Back: positive: Nml inspection. negative: CVA tenderness (R), CVA tenderness (L ) Skin: positive: Color nml, No rash, Warm, Dry. negative: Cyanosis Extremities: positive: Non-tender, Full ROM, Nml appearance, No pedal edema Neurologic/Psychiatric: positive: CN's nml (2-12), Motor nml, Sensation nml, Disoriented to place, Disoriented to time - LABS Result Diagrams: 11/09/17 05:22 11/09/17 05:22 - DIAGNOSTIC IMAGING Diagnostic Imaging Results: Final report reviewed Diagnostic Imaging Results Comments: EXAM: CT HEAD EXAM DATE: 11/06/2017 11:46 AM. CLINICAL HISTORY: Fall [place]. COMPARISON: None. TECHNIQUE: Multiaxial CT images were obtained from the foramen magnum to the vertex. Reformats: Coronal. IV contrast: None. In accordance with CT protocol optimization, one or more of the following dose reduction techniques were utilized for this exam: automated exposure control, adjustment of mA and/or KV based on patient size, or use of iterative reconstructive technique. FINDINGS: Parenchyma: No intraparenchymal hemorrhage. No evidence of mass, midline shift, or CT findings of acute infarction. Stephenson-white differentiation is distinct. Diffuse chronic microangiopathic white matter changes are evident and appear progressed. Extraaxial Spaces: Normal for age. No subdural or epidural collections identified. Ventricles: The ventricles and cortical sulci are enlarged, consistent with age- related tissue loss , with mild progression. Sinuses and orbits: Previously, the visualized paranasal sinuses were clear. Partial visualization of the maxillary sinuses now demonstrates opacification of much of the right maxillary sinus with an air-fluid level. There is also now near complete opacification of the ethmoid air cells bilaterally and moderate opacification in the frontal sinuses, left greater than right and substantial opacification within the sphenoid sinuses with evidence of air- fluid levels within the left frontal and bilateral sphenoid sinuses. This is compatible with acute sinusitis. In the setting of injury, hemorrhage is not excluded. Temporal bones are clear. No definite abnormal density or air within the orbits Bones: No definite fractures demonstrated. No definite fractures demonstrated within the visualized portion of the facial bones. Other: None. IMPRESSION: 1. Generalized age-related cortical atrophic changes without evidence of acute intracranial abnormality, with mild progression compared with 2009. 2. Partial demonstration of the paranasal sinuses demonstrates substantial new paranasal sinus disease with moderate to severe opacification of frontal, ethmoid and sphenoid sinuses and the right maxillary sinus with evidence of air-fluid levels within the frontal, sphenoid sinuses and right ethmoid sinus. This is compatible with acute, possibly upon chronic, sinusitis. In the setting of injury, hemorrhage within the sinuses cannot be excluded. 3. No definite fractures demonstrated. EXAM: CT CERVICAL SPINE WITHOUT CONTRAST DATE: 11/06/2017 11:46 AM. HISTORY: Fall [place]. Fall, head injury, neck pain. COMPARISONS: None. TECHNIQUE: Thin-section axial images were acquired of the cervical spine without contrast. Post- processing: Coronal and sagittal reformats. Other: None. In accordance with CT protocol optimization, one or more of the following dose reduction techniques were utilized for this exam: automated exposure control, adjustment of mA and/or KV based on patient size, or use of iterative reconstructive technique. FINDINGS: Alignment: No scoliosis or spondylolisthesis. Bones: 3 mm anterior listhesis at C4-C5, likely due to degenerative facet disease. Interspace Levels/Facets: Degenerative disk disease, greatest at C5-C6 where there is moderately severe disk space narrowing and moderate vertebral body spurring. Facet degenerative disease is greatest on the right at C3-C4 and on the left at C4-C5. Mild to moderate bony neural foraminal narrowing on the left at C4-C5 due to uncovertebral spurring. Only minimal to mild narrowing demonstrated at other levels. No high- grade bony canal stenosis. Musculature: Normal. No fatty atrophy. Other: No paravertebral soft tissue swelling demonstrated. Vascular calcifications, including bilateral carotid artery. The lung apices are clear. Substantial opacity within the visualized sphenoid sinuses. Refer to the head CT report. IMPRESSION: 1. No fracture or acute abnormality demonstrated. 2. Degenerative disk and facet disease, as above. 3. Grade 1 anterior listhesis at C4-C5, presumably due to degenerative facet disease. EXAM: LEFT SHOULDER RADIOGRAPHY EXAM DATE: 11/06/2017 11:44 AM. CLINICAL HISTORY: Fall, shoulder bruise. COMPARISON: Chest x-ray 11/02/2017. TECHNIQUE: 3 views. FINDINGS: Bones: No fracture or bone lesion. Joints: No convincing subluxation. Mild marginal spurring at the acromioclavicular joint. Glenohumeral joint is preserved. Soft tissues: No periarticular calcification. IMPRESSION: 1. No apparent fracture or bony malalignment. 2. Mild acromioclavicular DJD. EXAM: LEFT HIP RADIOGRAPHY EXAM DATE: 11/06/2017 12:05 PM. CLINICAL HISTORY: Fall, hip bruise. COMPARISON: None. TECHNIQUE: 2 views including AP pelvis. FINDINGS: Bones: No convincing acute fracture. Joints: No subluxation. Mild age-related left hip DJD. Intact pubic symphysis and grossly symmetrical SI joints. Soft Tissues: A small calcific density is adjacent to the left greater trochanter. Other: Moderate right hip DJD. Degenerative changes lower lumbar spine. IMPRESSION: 1. No convincing acute fracture or bony malalignment. 2. Mild left hip DJD. 3. A small calcification adjacent to the left greater trochanter, possible sequela of trochanteric bursitis. - FOLLOW UP Follow Up: See Dr. Rivera next week. - TIME SPENT Time Spent in Discharge (Minutes): 35
--- NOTE | 2017-11-09 11:19 | Discharge Plan ---
"Discharge Plan for SNF / [facility] - DC Plan and Transition Orders Disposition: 03 SNF DC/Xfer Condition: Stable SNF Transition Orders: Admit to: [facility] under the care of Dr Rivera Discharge Diagnosis: Rhabdomyolysis Medicare Certification: I certify that Post Hospital snf care is medically necessary on a continuing basis for any of the conditions for which she/he is receiving care during hospitalization. Notify PCP of admission and forward orders to primary provider for signature. Weight on admission and Weekly. Call PCP immediately if weight increases by 10 pounds or if patient develops dyspnea, chest pain/tightness or edema. House Bowel Program: Yes If no BM after 2 days, nurse may give M.O.M. 30ml PO PRN and /or ducolax Supp 1 MT and /or GRACE 250mg P.O., and/or senna 1-2 tabs PO. On day 3 nurse may give repeat above order until residents constipation is resolved. Immunizations: Annual Influenza Vaccine: Yes (between Apr 28 and November 25.) Unless allergy or already given Two-Step PPD: yes per [facility] [id number] or appropriate documentation of approved exceptions Oxygen Orders: 2L/m PRN dyspnea Medications: PLEASE REFER TO THE DISCHARGE MEDICATION LIST. Allergies and Adverse Reactions: Allergies Allergy/AdvReac Type Severity Reaction Status Date / Time No Known Drug Allergies Allergy Verified 11/06/17 09:37 - Diet Type: Geriatric Texture: Regular Liquids: Thin - Therapies | Activity Rehabilitation Potential: Maintain present ADL Functional Activity: Activity as Tolerated Weight Bearing: Full Weight Assistance Devices: Walker"
[2017-11-09 11:21] VITALS: BP 148/68
[2017-11-09] MEDS ORDERED: QUEtiapine 25 MG TABLET PO PRN (20:00)
== END 2017-11-09 14:45 | DRG 558 ==
LOC: ED 09:16 → MS2 13:28 → OBSVTOIN 11-07 13:29
PROVIDERS: ADMIT Specialist; ATTEND Hospitalist
DX: M62.82 Rhabdomyolysis (principal); J01.80 Other acute sinusitis; J18.9 Pneumonia, unspecified organism; F03.90 Unspecified dementia, unspecified severity, without behavioral disturbance, psychotic disturbance, mood disturbance, and anxiety; W19.XXXA Unspecified fall, initial encounter; T79.6XXA Traumatic ischemia of muscle, initial encounter; E86.0 Dehydration; G30.9 Alzheimer's disease, unspecified; F02.80 Dementia in other diseases classified elsewhere, unspecified severity, without behavioral disturbance, psychotic disturbance, mood disturbance, and anxiety; S40.012A Contusion of left shoulder, initial encounter; S70.02XA Contusion of left hip, initial encounter; G47.00 Insomnia, unspecified; F32.9 Major depressive disorder, single episode, unspecified; E78.5 Hyperlipidemia, unspecified; E03.9 Hypothyroidism, unspecified; I35.1 Nonrheumatic aortic (valve) insufficiency; G62.9 Polyneuropathy, unspecified; M81.0 Age-related osteoporosis without current pathological fracture; H91.90 Unspecified hearing loss, unspecified ear; M19.90 Unspecified osteoarthritis, unspecified site; M43.12 Spondylolisthesis, cervical region; Z79.899 Other long term (current) drug therapy; Z79.2 Long term (current) use of antibiotics; Z91.81 History of falling; Z87.442 Personal history of urinary calculi; Z90.11 Acquired absence of right breast and nipple; Z85.3 Personal history of malignant neoplasm of breast; Z86.19 Personal history of other infectious and parasitic diseases
CPT/HCPCS: 36415; 70450; 72125; 80048; 80053; 81001; 81003; 82550; 84443; 85025; 87086; 96360; 96361; 96365; 99283; 99284

== ENCOUNTER 2019-07-17 09:00 | Outpatient (CLI) | payer MEDICARE, OTHER ==
[2019-07-17 18:49] LABS: CALCIUM 9.3 mg/dL (8.5-10.3); CREATININE 0.7 mg/dL (0.4-1.0)
== END 2019-07-17 23:59 | disposition home or self-care (01) ==
LOC: LAB.WCP 09:00
PROVIDERS: ATTEND Family Medicine
DX: E78.5 Hyperlipidemia, unspecified (principal); E03.9 Hypothyroidism, unspecified
CPT/HCPCS: 36415; 80048; 84439